=== PATIENT | male | born 1960 | race Caucasian/White ===

== ENCOUNTER 2017-06-26 08:46 | Inpatient (IN) | payer BC ==
[~2017-06-26] VITALS: Ht 182.9 cm; Wt 98.3 kg
[2017-06-26 09:33] LABS: BASO % 0.7 % (0.0-2.0); EOS # 0.1 (0.0-0.7); EOS % 2.4 % (0-4.0); GRAN # 1.8 (1.4-6.5); GRAN % 61.1 % (42.2-75.2); HEMATOCRIT 42.9 % (42.0-52.0); HEMOGLOBIN 14.5 g/dl (13.5-18.0); LYMPH # 0.7 (1.2-3.4); LYMPH % 25.5 % (20.0-51.0); MEAN CELL VOLUME 94 fl (80.0-100.0); MEAN CORPUSCULAR HEMOGLOBIN 32 pg (27.0-31.0); MEAN CORPUSCULAR HGB CONC 34 g/dl (33.0-37.0); MEAN PLATELET VOLUME 10.1 fl (7.4-10.4); MONO # 0.3 (0.1-0.6); PLATELET COUNT 157 K/mm3 (130-400); RED BLOOD COUNT 4.55 M/mm3 (4.20-5.60)
[2017-06-26 09:46] LABS: ALANINE AMINOTRANSFERASE 46 U/L (21-72); ALBUMIN 4.2 gm/dL (3.5-5.0); ALKALINE PHOSPHATASE 64 U/L (50-136); ANION GAP 9 mmol/L (7-16); AST,SGOT 27 U/L (15-37); BILIRUBIN,TOTAL 0.5 mg/dL (0.0-1.0); BLOOD UREA NITROGEN 15 mg/dL (9-20); CALCIUM 8.9 mg/dL (8.4-10.2); CARBON DIOXIDE 24 mmol/L (22-30); CHLORIDE 104 mmol/L (98-107); CREATININE, serum 0.84 mg/dL (0.66-1.25); GLUCOSE 176 mg/dL (74-106); LIPASE 54 U/L (23-300); MAGNESIUM 1.7 mg/dL (1.6-2.3); POTASSIUM 3.8 mmol/L (3.4-5.0); SODIUM 137 mmol/L (137-145); TOTAL PROTEIN 6.6 gm/dL (6.4-8.2)
[2017-06-26 09:47] LABS: ALCOHOL(ethanol),MEDICAL < 10 mg/dL
[2017-06-26 09:58] LABS: TROPONIN-I < 0.012 ng/mL (0.000-0.034)
[2017-06-26 12:30] VITALS: BP 132/79; PULSE 72; TEMP 97.4
[2017-06-26 17:07] VITALS: BP 143/95; PULSE 71; TEMP 98.4
[2017-06-26 20:03] VITALS: BP 128/83; PULSE 83; TEMP 98.3
[2017-06-27] VITALS (10 sets, daily range): BP systolic 123–155; BP diastolic 78–96; PULSE 61–78; TEMP 97.2–98.5
[2017-06-27 07:21] LABS: CALCIUM 8.7 mg/dL (8.4-10.2); CHOLESTEROL RISK RATIO 4.2; CREATININE, serum 0.84 mg/dL (0.66-1.25); POTASSIUM 4.4 mmol/L (3.4-5.0)
[2017-06-27 07:22] LABS: BASO % 0.2 % (0.0-2.0); EOS # 0.2 (0.0-0.7); EOS % 3.4 % (0-4.0); GRAN # 2.4 (1.4-6.5); GRAN % 56.1 % (42.2-75.2); HEMATOCRIT 45.1 % (42.0-52.0); HEMOGLOBIN 14.8 g/dl (13.5-18.0); LYMPH # 1.2 (1.2-3.4); LYMPH % 27.8 % (20.0-51.0); MEAN CELL VOLUME 96 fl (80.0-100.0); MEAN CORPUSCULAR HEMOGLOBIN 32 pg (27.0-31.0); MEAN CORPUSCULAR HGB CONC 33 g/dl (33.0-37.0); MEAN PLATELET VOLUME 10.6 fl (7.4-10.4); MONO # 0.5 (0.1-0.6); PLATELET COUNT 165 K/mm3 (130-400); RED BLOOD COUNT 4.68 M/mm3 (4.20-5.60); REDCELL DISTRIBUTION WIDTH-CV 12.1 % (11.5-14.5)
[2017-06-28] VITALS (8 sets, daily range): BP systolic 113–147; BP diastolic 73–99; PULSE 64–79; TEMP 97.6–98.2
[2017-06-28 07:52] LABS: BASO % 0.3 % (0.0-2.0); EOS # 0.2 (0.0-0.7); EOS % 4.1 % (0-4.0); GRAN # 2.1 (1.4-6.5); GRAN % 58.3 % (42.2-75.2); HEMATOCRIT 44.5 % (42.0-52.0); HEMOGLOBIN 14.8 g/dl (13.5-18.0); LYMPH % 26.6 % (20.0-51.0); MEAN CELL VOLUME 95 fl (80.0-100.0); MEAN CORPUSCULAR HEMOGLOBIN 32 pg (27.0-31.0); MEAN CORPUSCULAR HGB CONC 33 g/dl (33.0-37.0); MEAN PLATELET VOLUME 10.5 fl (7.4-10.4); MONO # 0.4 (0.1-0.6); MONO % 10.7 % (1.7-9.3); PLATELET COUNT 177 K/mm3 (130-400); RED BLOOD COUNT 4.67 M/mm3 (4.20-5.60); REDCELL DISTRIBUTION WIDTH-CV 11.9 % (11.5-14.5)
[2017-06-28 08:06] LABS: CALCIUM 8.8 mg/dL (8.4-10.2); CREATININE, serum 0.9 mg/dL (0.66-1.25); MAGNESIUM 1.9 mg/dL (1.6-2.3); POTASSIUM 4.6 mmol/L (3.4-5.0)
[2017-06-28] MEDS ORDERED: LIPITOR 40MG TA40 MG PO (12:09)
[2017-06-28] MEDS ORDERED: PROTONIX 40MG T40 MG PO (12:09)
[2017-06-28] MEDS ORDERED: ASPIRIN E.C. 8181 MG PO (12:09)
[2017-06-28] MEDS ORDERED: DUO-KAPS1 CAP PO (12:10)
[2017-06-28] MEDS ORDERED: THIAMINE 1100 MG/TAB PO (12:19)
[2017-06-28] MEDS ORDERED: FOLIC ACID 11 MG/TA1 PO (12:19)
== END 2017-06-28 15:04 | disposition home or self-care (01) | DRG 92 ==
LOC: COL.ER 08:46 → MEDICAL 10:33
PROVIDERS: Emergency Medicine; Nurse Practitioner Family; Physician Assistant
DX: R26.81 Unsteadiness on feet (principal); Q21.1 Atrial septal defect; R13.12 Dysphagia, oropharyngeal phase; R73.9 Hyperglycemia, unspecified; F10.10 Alcohol abuse, uncomplicated; R47.81 Slurred speech; R10.13 Epigastric pain
CPT/HCPCS: 99232-AI; 99239; A9585; C9113; G0378; G8978-GP; G8979-GP; G8987-GO; G8988-GO; J1200; J2250; J2543; J3010; J3370; J7030; J7050

== ENCOUNTER 2018-10-11 20:46 | Emergency (ER) | payer BC ==
[~2018-10-11] VITALS: Ht 182.9 cm; Wt 97.7 kg
[~2018-10-11 20:46] MED LIST: ASPIRIN E.C. 8181 MG PO; DUO-KAPS1 CAP PO; FOLIC ACID 11 MG/TA1 PO; LIPITOR 40MG TA40 MG PO; PROTONIX 40MG T40 MG PO; THIAMINE 1100 MG/TAB PO
[2018-10-11 21:01] VITALS: TEMP 96.7
[2018-10-11 21:23] LABS: BASO % 0.5 % (0.0-2.0); EOS # 0.2 (0.0-0.7); EOS % 3.2 % (0-4.0); GRAN # 3.2 (1.4-6.5); GRAN % 57.2 % (42.2-75.2); HEMATOCRIT 45.3 % (42.0-52.0); HEMOGLOBIN 15.5 g/dl (13.5-18.0); LYMPH # 1.5 (1.2-3.4); LYMPH % 27.7 % (20.0-51.0); MEAN CELL VOLUME 93 fl (80.0-100.0); MEAN CORPUSCULAR HEMOGLOBIN 32 pg (27.0-31.0); MEAN CORPUSCULAR HGB CONC 34 g/dl (33.0-37.0); MEAN PLATELET VOLUME 10.3 fl (7.4-10.4); MONO # 0.6 (0.1-0.6); MONO % 11.2 % (1.7-9.3); PLATELET COUNT 195 K/mm3 (130-400); RED BLOOD COUNT 4.86 M/mm3 (4.20-5.60); REDCELL DISTRIBUTION WIDTH-CV 12.3 % (11.5-14.5)
[2018-10-11 21:40] LABS: ALANINE AMINOTRANSFERASE 33 U/L (21-72); ALBUMIN 4.5 gm/dL (3.5-5.0); ALKALINE PHOSPHATASE 65 U/L (50-136); ANION GAP 10 mmol/L (7-16); AST,SGOT 37 U/L (15-37); BILIRUBIN,TOTAL 0.6 mg/dL (0.0-1.0); BLOOD UREA NITROGEN 14 mg/dL (9-20); CALCIUM 9.5 mg/dL (8.4-10.2); CARBON DIOXIDE 24 mmol/L (22-30); CHLORIDE 106 mmol/L (98-107); CREATININE, serum 0.88 (0.66-1.25); GLUCOSE 86 mg/dL (74-106); LIPASE 88 U/L (23-300); SODIUM 139 mmol/L (137-145); TOTAL PROTEIN 7.7 gm/dL (6.4-8.2)
[2018-10-11 21:45] LABS: C-REACTIVE PROTEIN < 0.5 mg/dL (0.0-0.9)
[2018-10-11 22:08] LABS: COLLECTION METHOD CLEAN CATCH
[2018-10-11 22:14] LABS: MUCOUS Present /lpf; PH 5 (5-8); SQUAMOUS EPITHELIAL None Seen /hpf; URINE APPEARANCE Clear; URINE BACTERIA None Seen /hpf; URINE BILIRUBIN Negative (NEGATIVE); URINE BLOOD Negative (NEGATIVE); URINE COLOR Yellow; URINE GLUCOSE Negative (NEGATIVE); URINE KETONE Trace (NEGATIVE); URINE LEUKOCYTE ESTERASE Negative (NEGATIVE); URINE NITRATE Negative (NEGATIVE); URINE PROTEIN(semi-quant) Negative (NEGATIVE); URINE RBC 0-2 /hpf; URINE UROBILINOGEN Negative (NEGATIVE)
[2018-10-11 22:59] VITALS: BP 149/104; PULSE 76
== END 2018-10-11 22:59 | disposition home or self-care (01) ==
LOC: COL.ER 20:46
PROVIDERS: Nurse Practitioner
DX: R10.31 Right lower quadrant pain (principal); Z79.82 Long term (current) use of aspirin
CPT/HCPCS: J2270; J2405; J7030; Q9967